=== PATIENT | male | born 1940 | race Caucasian/White ===

== ENCOUNTER 2017-04-18 14:41 | Emergency (ER) | payer MEDICARE ==
[2017-04-18 15:04] VITALS: BP 139/66
[2017-04-18] MEDS ORDERED: Acetaminophen TAB* 325 MG PO ONE (15:37)
[2017-04-18] MEDS ORDERED: HYDROcodone/ACETAMIN 5-325 MG* 1 TAB PO ONE (15:37)
[2017-04-18] MEDS ORDERED: Tetan/Diph/Pertus SYR(Tdap)* 0.5 ML SYR(BOOSTRIX) use SYR IM ONE ×2 (15:39→16:01)
--- NOTE | 2017-04-18 15:41 | RAD ---
INDICATION: Left hand injury, laceration metacarpal phalangeal joint region. TECHNIQUE: 4 views of the left hand were obtained. FINDINGS: There is soft tissue swelling in the second third and fourth fingers and dorsal to the metacarpal phalangeal joints. The bones are normal alignment. No fracture is seen. 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 IMPRESSION: SOFT TISSUE INJURY, NO FRACTURE IS SEEN.
[2017-04-18] MEDS ORDERED: Lidocaine 1% MPF* 2 ML VIAL INJ ONE (15:56)
[2017-04-18] MEDS ORDERED: Lidocaine 1% MPF* 2 ML VIAL ONE (15:58)
--- NOTE | 2017-04-18 16:33 | UC ---
Thalia Lyons Emily, scribed for Ellen Hobbs MD on 04/18/17 at 1540 . Laceration HPI - HPI Summary HPI Summary: This patient is a 76 year old M presenting to urgent care with a chief complaint of injury to L hand that occurred at 1400. Pt hit his hand on a 4 inch bark grinder when working with piece of metal. 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 The patient rates the pain 7/10 in severity. Symptoms aggravated by movement off fingers. . Symptoms alleviated by nothing. Patient reports pain at base middle finger of L hand. Pt denies numbness in hand. no anticoagulation. Pt is right handed. not immunocompromised. Pt is RHD. Patient's medication reviewed this visit. - History Of Current Complaint Chief Complaint: UCUpperExtremity Stated Complaint: FINGER INJURY Time Seen by Provider: 04/18/17 15:07 Hx Obtained From: Patient Laceration Location: Hand Severity: Moderate Pain Intensity: 7 Pain Scale Used: 0-10 Numeric Aggravating Factors: Nothing Related History: Dominant Hand Right - Allergies/Home Medications Allergies/Adverse Reactions: Allergies Allergy/AdvReac Type Severity Reaction Status Date / Time No Known Allergies Allergy Verified 04/18/17 15:05 PMH/Surg Hx/FS Hx/Imm Hx Previously Healthy: No Other Cardiovascular History: Negative diabetes and HTN Other Respiratory History: Negative COPD GI/ History: Other - BPH Other GI/ History: BPH - Surgical History Surgical History: Yes Surgery Procedure, Year, and Place: prostate surgery, 2006, Lung surgery to remove a nodule, vasectomy - Family History Known Family History: Positive: None - Social History Occupation: Retired Lives: With Family Alcohol Use: Occasionally Substance Use Type: None Smoking Status (MU): Never Smoked Tobacco - Immunization History Most Recent Tetanus Shot: unknown Review of Systems Constitutional: Negative Neurovascular: Negative Musculoskeletal: Other: - Positive injury to L hand and pain in middle finger of L hand Neurological: Other - Negative numbness in L hand. Is Patient Immunocompromised?: No All Other Systems Reviewed And Are Negative: Yes Physical Exam Triage Information Reviewed: Yes Appearance: Well-Appearing, No Pain Distress, Well-Nourished Vital Signs: Initial Vital Signs Temp 97.6 F 04/18/17 15:01 Pulse 60 04/18/17 15:01 Resp 12 04/18/17 15:01 BP 139/66 04/18/17 15:01 Pulse Ox 97 04/18/17 15:01 Vital Signs Reviewed: Yes ENT: Positive: Hearing grossly normal Neck exam: Normal Neck: Positive: Supple, Nontender Respiratory Exam: Normal Respiratory: Positive: Chest non-tender, Lungs clear, Normal breath sounds, No respiratory distress, No accessory muscle use Cardiovascular Exam: Normal Cardiovascular: Positive: RRR, No Murmur, Other: - 2+ radial CBt < 2 sec all digits Musculoskeletal: Positive: Other: - + flex/ext elbow, wrist Full flex/ext mcp, pip, dip agains resistace and isolate Pt with discomfort over 3/4/5 MCP with full extension No crepitus Neurological Exam: Normal Neurological: Positive: Alert, Other: - full sensation throughout Psychological Exam: Normal Skin: Positive: Other - Pt with partial skin avulsion and laceration base of left middle digit just distal to MCP on dorsum pt with diffuse edema across dorsum 3/4/5 MCP left hand Laceration Repair - Laceration Repair 1 Description: Linear Laceration Size After Repair: Length (cm) - 1 Modified For Repair: No Type Injection: Local Anesthesia Used: 1.0% Lido - 1ml Cleansing Completed Via Routine Prep: Yes Irrigation With Pressure Irrigation Device: Yes Closure Material: SteriStrips, Sutures - 2 Closure Method: Single Layer Suture Of: Skin Suture Type: Nylon - 4-0 Diagnostics - Radiology L Hand XR Radiology Interpretation Completed By: Radiologist - Hand XR read by radiologist reveals soft tissue injury, no fracture is seen. ED physician has reviewed this radiology report and agrees. Laceration Course/Dx - Course/Dx Course Of Treatment: Pt presents with avulsion, laceration and contusion to dorsum left hand from a bark grinder. Pt CSM intact. Xray - no fx. placed 2 sutures after copious irrigation under standard sterile procedure following a time out. tda updated. analges. placed in splint/sling. referred to ortho hand. Pt in agreement with plan - Differential Dx - Laceration/Wound Provider Diagnoses: hand contusion. hand laceration. shell skin avulsion Discharge - Discharge Plan Condition: Stable Disposition: HOME Prescriptions: Amoxicillin/Clavulanate TAB* [Augmentin TAB 875*] 875 mg PO BID #14 tab Patient Education Materials: Diphtheria/Pertussis/Tetanus Vaccine (By injection ), Laceration (ED), Hematoma (ED) Referrals: Garrett Norris MD [Medical Doctor] - 1 Day Additional Instructions: - Okay to alternate ibuprofen (Advil, Motrin) and tylenol every 3 hours for pain. Take with food - Leave bandage and splint in place until you are seen by orthopedics in following-up - wear sling for comfort - Contact the orthopedic specialists to schedule a follow-up appointment this week - take antibiotics a prescribed until gone - you had an tetanus booster today - your arm will likely be achy tomorrow- this is normal -call your doctor, orthopedics, or return with questions or concerns Procedure Note / Orthopedic - Splinting/Strapping/Stabilization Immobilizing Device: Other Post Spliniting/Strapping /Stabilization: N/V Intact - left volar short arm The documentation as recorded by the Thalia montero Emily accurately reflects the service I personally performed and the decisions made by me, Ellen Hobbs MD.
== END 2017-04-18 16:48 | disposition home or self-care (01) ==
LOC: UCEAST 14:41
DX: S61.412A Laceration without foreign body of left hand, initial encounter (principal); W45.8XXA Other foreign body or object entering through skin, initial encounter; Y92.9 Unspecified place or not applicable; S60.222A Contusion of left hand, initial encounter
CPT/HCPCS: 90715; 99212; A9270-GY; G0463